=== PATIENT | male | born 1970 | race Caucasian/White ===

== ENCOUNTER 2022-08-16 14:34 | Inpatient (IN) | payer SELFPAY ==
[2022-08-16] MEDS ORDERED: Ondansetron 4 MG/2 ML SDV IVPUSH ONE (15:01)
[2022-08-16] MEDS ORDERED: HYDROmorphone 0.5 MG/0.5 ML Syringe IVPUSH ONE ×3 (15:01→20:20)
[2022-08-16] MEDS ORDERED: Sodium Chloride 0.9% 1,000 ML IV STA (15:01)
[2022-08-16] MEDS ORDERED: Sodium Chloride 0.9% 500 ML IV STA (16:16)
[2022-08-16] MEDS ORDERED: Sodium Chloride 0.9% 10 ML Syringe FLUSH ONE (16:25)
[2022-08-16] MEDS ORDERED: Iopamidol 612 MG/ML 100 ML Bottle IVPUSH ONE (16:25)
[2022-08-16] MEDS ORDERED: Heparin Sodium 5,000 Units/ML Vial IVPUSH ONE (17:08)
[2022-08-16] MEDS ORDERED: Heparin Sodium/D5W 25,000 UNITS/500 ML BAG IV SCH (17:15)
[2022-08-16] MEDS: NS with KCl 40mEq 1,000 ML IV SCH (17:37)
[2022-08-16 17:59] LABS: CORONAVIRUS COVID-19 NAA NEGATIVE (NEGATIVE)
[2022-08-16] MEDS ORDERED: cefTRIAXone 2 GM in Sodium Chloride 0.9% 100 ML IV ONE (20:16)
[2022-08-16] MEDS: Sodium Chloride 0.9% 10 ML Syringe FLUSH PRN (20:54)
[2022-08-16] MEDS: HYDROmorphone 0.5 MG/0.5 ML Syringe IVPUSH PRN (23:19)
[2022-08-16] MEDS: traZODone 50 MG Tab PO PRN (23:19)
[2022-08-17] MEDS ORDERED: Heparin Sodium 5,000 Units/ML Vial IVPUSH STA (01:11)
[2022-08-17] MEDS: HYDROmorphone 0.5 MG/0.5 ML Syringe IVPUSH PRN ×8 (01:19→21:46)
[2022-08-17] MEDS: NS with KCl 40mEq 1,000 ML IV SCH ×2 (01:20→09:34)
[2022-08-17] MEDS ORDERED: Heparin Sodium 5,000 Units/ML Vial IVPUSH ONE ×2 (09:15→17:58)
[2022-08-17] MEDS: Sodium Chloride 0.9% 10 ML Syringe FLUSH PRN (09:40)
[2022-08-17] MEDS: Pantoprazole 40 MG Tab.CR PO SCH (10:32)
[2022-08-17] MEDS: Naphazoline 0.12%/Zinc Sulfate/Glycerin Ophth Soln 15 ML Bottle EYEBOTH PRN (10:32)
[2022-08-17] MEDS ORDERED: Lactated Ringers 1,000 ML IV SCH (13:45)
[2022-08-17] MEDS ORDERED: Psyllium Husk Powder Sugar Free 5.85 GM Packet PO PRN (13:48)
[2022-08-17] MEDS ORDERED: hydrALAZINE 20 MG/ML SDV IVPUSH PRN (13:48)
[2022-08-17] MEDS ORDERED: Docusate Sodium 100 MG Cap PO PRN (13:48)
[2022-08-17] MEDS ORDERED: Ondansetron 4 MG/2 ML SDV IVPUSH PRN (13:48)
[2022-08-17] MEDS ORDERED: cefTRIAXone 1 GM in Sodium Chloride 0.9% 100 ML IV SCH (14:00)
[2022-08-17] MEDS: Heparin Sodium/D5W 25,000 UNITS/500 ML BAG IV SCH (14:14)
[2022-08-17] MEDS: Nicotine 14 MG/24 Hr Patch TRDERM SCH (15:02)
[2022-08-17] MEDS: Acetaminophen/oxyCODONE 325-5 MG Tab PO PRN (15:13)
[2022-08-17] MEDS ORDERED: cefTRIAXone 1 GM in Sodium Chloride 0.9% 100 ML IV ONE (16:00)
[2022-08-17] MEDS: Aluminum Hydroxide/Magnesium Hydroxide/Simethicone Susp 30 ML Cup PO PRN (21:47)
[2022-08-17] MEDS: traZODone 50 MG Tab PO PRN (23:40)
[2022-08-18] MEDS ORDERED: Heparin Sodium 5,000 Units/ML Vial IVPUSH ONE ×2 (00:07→07:43)
[2022-08-18] MEDS: Acetaminophen/oxyCODONE 325-5 MG Tab PO PRN ×3 (03:12→21:43)
[2022-08-18] MEDS: Heparin Sodium/D5W 25,000 UNITS/500 ML BAG IV SCH ×2 (04:53→15:39)
[2022-08-18] MEDS: Pantoprazole 40 MG Tab.CR PO SCH (05:00)
[2022-08-18] MEDS: Nicotine 14 MG/24 Hr Patch TRDERM SCH ×2 (08:04→09:41)
[2022-08-18] MEDS: cefTRIAXone 2 GM in Sodium Chloride 0.9% 100 ML IV SCH (08:04)
[2022-08-18] MEDS: HYDROmorphone 0.5 MG/0.5 ML Syringe IVPUSH PRN ×4 (09:21→19:40)
[2022-08-18] MEDS: Acetaminophen 325 MG Tab PO PRN (10:38)
[2022-08-18] MEDS: Aluminum Hydroxide/Magnesium Hydroxide/Simethicone Susp 30 ML Cup PO PRN ×2 (10:38→20:21)
[2022-08-18] MEDS: traZODone 50 MG Tab PO PRN (21:44)
[2022-08-18] MEDS ORDERED: Heparin Sodium 5,000 Units/ML Vial IVPUSH STA (22:59)
[2022-08-19] MEDS: HYDROmorphone 0.5 MG/0.5 ML Syringe IVPUSH PRN ×8 (00:22→20:55)
[2022-08-19] MEDS: Heparin Sodium/D5W 25,000 UNITS/500 ML BAG IV SCH ×3 (01:32→20:54)
[2022-08-19] MEDS: Acetaminophen/oxyCODONE 325-5 MG Tab PO PRN ×3 (06:01→23:36)
[2022-08-19] MEDS: Pantoprazole 40 MG Tab.CR PO SCH (06:01)
[2022-08-19] MEDS ORDERED: Heparin Sodium 5,000 Units/ML Vial IVPUSH STA (06:32)
[2022-08-19] MEDS: Nicotine 14 MG/24 Hr Patch TRDERM SCH (08:30)
[2022-08-19] MEDS: cefTRIAXone 2 GM in Sodium Chloride 0.9% 100 ML IV SCH (09:05)
[2022-08-19] MEDS: Sodium Bicarbonate 650 MG Tab PO SCH ×2 (10:24→20:54)
[2022-08-19] MEDS: Potassium Chloride 20 MEQ Tab.ER PO SCH ×2 (10:25→20:54)
[2022-08-19] MEDS: Calcium Carbonate 500 MG Tab.Chew PO PRN ×2 (11:46→18:41)
[2022-08-19] MEDS: Acetaminophen 325 MG Tab PO PRN (21:03)
[2022-08-20] MEDS: Heparin Sodium/D5W 25,000 UNITS/500 ML BAG IV SCH (04:46)
[2022-08-20] MEDS: Pantoprazole 40 MG Tab.CR PO SCH (05:37)
[2022-08-20] MEDS: Calcium Carbonate 500 MG Tab.Chew PO PRN ×3 (08:21→17:43)
[2022-08-20] MEDS: Acetaminophen/oxyCODONE 325-5 MG Tab PO PRN (08:21)
[2022-08-20] MEDS: Potassium Chloride 20 MEQ Tab.ER PO SCH ×2 (08:22→20:51)
[2022-08-20] MEDS: Sodium Bicarbonate 650 MG Tab PO SCH ×2 (08:22→20:52)
[2022-08-20] MEDS: cefTRIAXone 2 GM in Sodium Chloride 0.9% 100 ML IV SCH (10:10)
[2022-08-20] MEDS: Enoxaparin 80 MG/0.8 ML Syringe SUBCUT SCH ×2 (10:16→21:00)
[2022-08-20] MEDS: HYDROmorphone 0.5 MG/0.5 ML Syringe IVPUSH PRN ×3 (15:08→20:55)
[2022-08-20] MEDS: Acetaminophen 325 MG Tab PO PRN (15:51)
[2022-08-20] MEDS: traZODone 50 MG Tab PO PRN (20:51)
[2022-08-21] MEDS: HYDROmorphone 0.5 MG/0.5 ML Syringe IVPUSH PRN ×5 (00:52→20:22)
[2022-08-21] MEDS: Acetaminophen/oxyCODONE 325-5 MG Tab PO PRN ×3 (01:55→14:59)
[2022-08-21] MEDS: Pantoprazole 40 MG Tab.CR PO SCH (06:25)
[2022-08-21] MEDS: Acetaminophen 325 MG Tab PO PRN ×2 (06:31→20:13)
[2022-08-21] MEDS: Sodium Bicarbonate 650 MG Tab PO SCH ×2 (08:27→20:12)
[2022-08-21] MEDS: Potassium Chloride 20 MEQ Tab.ER PO SCH ×2 (08:27→20:13)
[2022-08-21] MEDS: cefTRIAXone 2 GM in Sodium Chloride 0.9% 100 ML IV SCH (08:29)
[2022-08-21] MEDS: Enoxaparin 80 MG/0.8 ML Syringe SUBCUT SCH ×2 (09:56→22:13)
[2022-08-21] MEDS: Calcium Carbonate 500 MG Tab.Chew PO PRN (11:54)
[2022-08-21] MEDS: Aluminum Hydroxide/Magnesium Hydroxide/Simethicone Susp 30 ML Cup PO PRN (18:30)
[2022-08-21] MEDS: traZODone 50 MG Tab PO PRN (20:12)
[2022-08-22] MEDS: HYDROmorphone 0.5 MG/0.5 ML Syringe IVPUSH PRN ×4 (00:14→20:34)
[2022-08-22] MEDS: Acetaminophen/oxyCODONE 325-5 MG Tab PO PRN ×4 (04:02→23:13)
[2022-08-22] MEDS: Pantoprazole 40 MG Tab.CR PO SCH (06:19)
[2022-08-22] MEDS ORDERED: Sodium Chloride 0.9% 10 ML Syringe FLUSH PRN (09:11)
[2022-08-22] MEDS ORDERED: Iopamidol 755 Mg/ML 100 ML Bottle IVPUSH ONE (09:11)
[2022-08-22] MEDS ORDERED: Sodium Chloride 0.9% 100 ML IV SCH (09:15)
[2022-08-22] MEDS ORDERED: Iopamidol 755 MG/ML 50 ML Bottle IVPUSH ONE ×3 (09:50)
[2022-08-22] MEDS ORDERED: Piperacillin/Tazobactam 4.5 GM in Sodium Chloride 0.9% 100 ML IV ONE (10:00)
[2022-08-22] MEDS: Enoxaparin 80 MG/0.8 ML Syringe SUBCUT SCH ×2 (10:30→22:15)
[2022-08-22] MEDS: Potassium Chloride 20 MEQ Tab.ER PO SCH (10:30)
[2022-08-22] MEDS: cefTRIAXone 2 GM in Sodium Chloride 0.9% 100 ML IV SCH (10:30)
[2022-08-22] MEDS: Sodium Bicarbonate 650 MG Tab PO SCH (10:31)
[2022-08-22] MEDS: Sodium Chloride 1 GM Tab PO SCH ×2 (10:54→20:34)
[2022-08-22] MEDS: Aluminum Hydroxide/Magnesium Hydroxide/Simethicone Susp 30 ML Cup PO PRN (10:54)
[2022-08-22] MEDS: Piperacillin/Tazobactam 4.5 GM in Sodium Chloride 0.9% 100 ML IV SCH (17:47)
[2022-08-22] MEDS: Calcium Carbonate 500 MG Tab.Chew PO PRN (17:49)
[2022-08-22] MEDS: traZODone 50 MG Tab PO PRN (20:34)
[2022-08-23] MEDS: HYDROmorphone 0.5 MG/0.5 ML Syringe IVPUSH PRN ×7 (02:36→23:32)
[2022-08-23] MEDS: Piperacillin/Tazobactam 4.5 GM in Sodium Chloride 0.9% 100 ML IV SCH ×3 (02:43→17:07)
[2022-08-23] MEDS: Pantoprazole 40 MG Tab.CR PO SCH (05:16)
[2022-08-23] MEDS: Acetaminophen/oxyCODONE 325-5 MG Tab PO PRN ×2 (06:22→21:54)
[2022-08-23] MEDS: Sodium Chloride 1 GM Tab PO SCH ×2 (09:13→20:17)
[2022-08-23] MEDS: Enoxaparin 80 MG/0.8 ML Syringe SUBCUT SCH ×2 (09:14→21:55)
[2022-08-23] MEDS: cefTRIAXone 2 GM in Sodium Chloride 0.9% 100 ML IV SCH (09:22)
[2022-08-23] MEDS: Calcium Carbonate 500 MG Tab.Chew PO PRN (09:27)
[2022-08-23 13:48] LABS: C. TRACHOMATIS BY PCR NOT DETECTED; N. GONORRHOEAE BY PCR NOT DETECTED
[2022-08-23] MEDS: traZODone 50 MG Tab PO PRN (23:33)
[2022-08-24] MEDS: HYDROmorphone 0.5 MG/0.5 ML Syringe IVPUSH PRN ×7 (02:52→23:42)
[2022-08-24] MEDS: Piperacillin/Tazobactam 4.5 GM in Sodium Chloride 0.9% 100 ML IV SCH ×3 (02:52→17:39)
[2022-08-24] MEDS: Acetaminophen 325 MG Tab PO PRN ×2 (03:10→19:58)
[2022-08-24] MEDS: Acetaminophen/oxyCODONE 325-5 MG Tab PO PRN ×2 (05:04→22:01)
[2022-08-24] MEDS: Pantoprazole 40 MG Tab.CR PO SCH (05:05)
[2022-08-24] MEDS: cefTRIAXone 2 GM in Sodium Chloride 0.9% 100 ML IV SCH (08:33)
[2022-08-24] MEDS: Calcium Carbonate 500 MG Tab.Chew PO PRN ×3 (08:34→17:38)
[2022-08-24] MEDS: Sodium Chloride 1 GM Tab PO SCH ×3 (08:34→21:48)
[2022-08-24] MEDS: Enoxaparin 80 MG/0.8 ML Syringe SUBCUT SCH ×2 (10:12→22:01)
[2022-08-24] MEDS: traZODone 50 MG Tab PO PRN (19:58)
[2022-08-25] MEDS: HYDROmorphone 0.5 MG/0.5 ML Syringe IVPUSH PRN ×5 (02:14→23:57)
[2022-08-25] MEDS: Piperacillin/Tazobactam 4.5 GM in Sodium Chloride 0.9% 100 ML IV SCH ×2 (02:14→10:27)
[2022-08-25] MEDS: Naphazoline 0.12%/Zinc Sulfate/Glycerin Ophth Soln 15 ML Bottle EYEBOTH PRN (03:10)
[2022-08-25] MEDS: Pantoprazole 40 MG Tab.CR PO SCH (05:06)
[2022-08-25] MEDS: cefTRIAXone 2 GM in Sodium Chloride 0.9% 100 ML IV SCH (08:20)
[2022-08-25] MEDS: Acetaminophen/oxyCODONE 325-5 MG Tab PO PRN ×2 (08:23→20:07)
[2022-08-25] MEDS: Sodium Chloride 1 GM Tab PO SCH (08:23)
[2022-08-25] MEDS: Calcium Carbonate 500 MG Tab.Chew PO PRN ×2 (08:24→16:57)
[2022-08-25] MEDS: Enoxaparin 80 MG/0.8 ML Syringe SUBCUT SCH ×2 (10:27→21:01)
[2022-08-25] MEDS: Gabapentin 100 MG Cap PO SCH (14:30)
[2022-08-25] MEDS: traZODone 50 MG Tab PO PRN (20:09)
[2022-08-26] MEDS: Acetaminophen/oxyCODONE 325-5 MG Tab PO PRN ×2 (02:34→09:15)
[2022-08-26] MEDS: HYDROmorphone 0.5 MG/0.5 ML Syringe IVPUSH PRN ×4 (06:08→22:48)
[2022-08-26] MEDS: Pantoprazole 40 MG Tab.CR PO SCH (06:09)
[2022-08-26] MEDS: Enoxaparin 80 MG/0.8 ML Syringe SUBCUT SCH ×2 (09:14→21:30)
[2022-08-26] MEDS: Acetaminophen 325 MG Tab PO PRN ×3 (09:15→19:03)
[2022-08-26] MEDS: Gabapentin 100 MG Cap PO SCH (09:16)
[2022-08-26] MEDS: cefTRIAXone 2 GM in Sodium Chloride 0.9% 100 ML IV SCH (09:16)
[2022-08-26] MEDS: oxyCODONE 5 MG Tab PO PRN ×2 (14:17→20:20)
[2022-08-26] MEDS ORDERED: Warfarin 5 MG Tab PO SCH (18:00)
[2022-08-26] MEDS: traZODone 50 MG Tab PO PRN (22:48)
[2022-08-27] MEDS: Acetaminophen 325 MG Tab PO PRN ×2 (00:40→10:32)
[2022-08-27] MEDS: oxyCODONE 5 MG Tab PO PRN ×3 (02:55→18:07)
[2022-08-27] MEDS: HYDROmorphone 0.5 MG/0.5 ML Syringe IVPUSH PRN ×3 (05:00→21:22)
[2022-08-27] MEDS: Pantoprazole 40 MG Tab.CR PO SCH (05:00)
[2022-08-27] MEDS: Gabapentin 100 MG Cap PO SCH ×3 (08:57→21:21)
[2022-08-27] MEDS: Enoxaparin 80 MG/0.8 ML Syringe SUBCUT SCH ×3 (08:58→21:21)
[2022-08-27] MEDS ORDERED: methylPREDNISolone Sod Succ 125 MG in Sodium Chloride 0.9% 250 ML IV ONE (11:50)
[2022-08-27] MEDS ORDERED: methylPREDNISolone Sodium Succinate 125 MG/2 ML SDV IV ONE (12:15)
[2022-08-27] MEDS ORDERED: oxyCODONE 5 MG Tab PO ONE (12:17)
[2022-08-27] MEDS ORDERED: Warfarin 5 MG Tab PO SCH (18:00)
[2022-08-27] MEDS: traZODone 50 MG Tab PO PRN (22:51)
[2022-08-28] MEDS: oxyCODONE 5 MG Tab PO PRN ×3 (01:43→20:52)
[2022-08-28] MEDS: Acetaminophen 325 MG Tab PO PRN ×2 (03:34→19:47)
[2022-08-28] MEDS: Pantoprazole 40 MG Tab.CR PO SCH (05:55)
[2022-08-28] MEDS ORDERED: Piperacillin/Tazobactam 4.5 GM in Sodium Chloride 0.9% 100 ML IV ONE (06:15)
[2022-08-28] MEDS ORDERED: Sodium Chloride 0.9% 10 ML Syringe FLUSH PRN (08:38)
[2022-08-28] MEDS ORDERED: Iopamidol 755 MG/ML 50 ML Bottle IVPUSH ONE ×2 (08:38)
[2022-08-28] MEDS ORDERED: Sodium Chloride 0.9% 100 ML IV SCH (08:45)
[2022-08-28] MEDS: Enoxaparin 80 MG/0.8 ML Syringe SUBCUT SCH ×2 (09:40→21:02)
[2022-08-28] MEDS: Gabapentin 100 MG Cap PO SCH ×3 (09:40→20:53)
[2022-08-28] MEDS: Piperacillin/Tazobactam 4.5 GM in Sodium Chloride 0.9% 100 ML IV SCH ×2 (14:42→21:03)
[2022-08-28] MEDS: HYDROmorphone 0.5 MG/0.5 ML Syringe IVPUSH PRN (17:47)
[2022-08-28] MEDS ORDERED: Warfarin 5 MG Tab PO SCH (18:00)
[2022-08-28] MEDS: Naphazoline 0.12%/Zinc Sulfate/Glycerin Ophth Soln 15 ML Bottle EYEBOTH PRN (18:01)
[2022-08-28] MEDS: traZODone 50 MG Tab PO PRN (20:53)
[2022-08-29] MEDS: HYDROmorphone 0.5 MG/0.5 ML Syringe IVPUSH PRN ×3 (01:39→17:52)
[2022-08-29] MEDS: oxyCODONE 5 MG Tab PO PRN ×4 (04:25→20:30)
[2022-08-29] MEDS: Pantoprazole 40 MG Tab.CR PO SCH (05:00)
[2022-08-29] MEDS: Naphazoline 0.12%/Zinc Sulfate/Glycerin Ophth Soln 15 ML Bottle EYEBOTH PRN ×2 (05:00→16:01)
[2022-08-29] MEDS: Piperacillin/Tazobactam 4.5 GM in Sodium Chloride 0.9% 100 ML IV SCH ×3 (05:00→22:16)
[2022-08-29] MEDS: Gabapentin 100 MG Cap PO SCH ×3 (09:40→22:14)
[2022-08-29] MEDS: Enoxaparin 80 MG/0.8 ML Syringe SUBCUT SCH ×2 (09:40→22:13)
[2022-08-29] MEDS: Acetaminophen 325 MG Tab PO PRN (12:01)
[2022-08-29] MEDS ORDERED: Warfarin 2.5 MG Tab PO SCH (18:00)
[2022-08-29] MEDS: traZODone 50 MG Tab PO PRN (20:32)
[2022-08-30] MEDS: Acetaminophen 325 MG Tab PO PRN ×3 (02:22→23:10)
[2022-08-30] MEDS: HYDROmorphone 0.5 MG/0.5 ML Syringe IVPUSH PRN ×3 (02:22→18:28)
[2022-08-30] MEDS: oxyCODONE 5 MG Tab PO PRN ×4 (02:22→20:18)
[2022-08-30] MEDS: Piperacillin/Tazobactam 4.5 GM in Sodium Chloride 0.9% 100 ML IV SCH ×3 (06:27→22:44)
[2022-08-30] MEDS: Pantoprazole 40 MG Tab.CR PO SCH (06:27)
[2022-08-30] MEDS: Gabapentin 100 MG Cap PO SCH ×3 (10:12→20:18)
[2022-08-30] MEDS: Naphazoline 0.12%/Zinc Sulfate/Glycerin Ophth Soln 15 ML Bottle EYEBOTH PRN (10:15)
[2022-08-30] MEDS: Enoxaparin 80 MG/0.8 ML Syringe SUBCUT SCH ×2 (10:45→23:00)
[2022-08-30] MEDS ORDERED: Warfarin 4 MG Tab PO SCH (18:00)
[2022-08-30] MEDS: traZODone 50 MG Tab PO PRN (23:10)
[2022-08-31] MEDS: oxyCODONE 5 MG Tab PO PRN ×5 (01:00→20:08)
[2022-08-31] MEDS: HYDROmorphone 0.5 MG/0.5 ML Syringe IVPUSH PRN ×3 (03:01→23:05)
[2022-08-31] MEDS: Pantoprazole 40 MG Tab.CR PO SCH (06:14)
[2022-08-31] MEDS: Piperacillin/Tazobactam 4.5 GM in Sodium Chloride 0.9% 100 ML IV SCH ×3 (06:14→22:48)
[2022-08-31] MEDS: Acetaminophen 325 MG Tab PO PRN ×2 (08:22→17:55)
[2022-08-31] MEDS: Gabapentin 100 MG Cap PO SCH ×3 (08:23→20:08)
[2022-08-31] MEDS: Naphazoline 0.12%/Zinc Sulfate/Glycerin Ophth Soln 15 ML Bottle EYEBOTH PRN (08:32)
[2022-08-31] MEDS ORDERED: HYDROmorphone 0.5 MG/0.5 ML Syringe IVPUSH ONE (09:15)
[2022-08-31] MEDS: Enoxaparin 80 MG/0.8 ML Syringe SUBCUT SCH ×2 (09:29→22:49)
[2022-08-31] MEDS ORDERED: Warfarin 4 MG Tab PO SCH (18:00)
[2022-09-01] MEDS: oxyCODONE 5 MG Tab PO PRN ×4 (04:17→22:39)
[2022-09-01] MEDS: Piperacillin/Tazobactam 4.5 GM in Sodium Chloride 0.9% 100 ML IV SCH (06:45)
[2022-09-01] MEDS: Pantoprazole 40 MG Tab.CR PO SCH (06:45)
[2022-09-01] MEDS: Gabapentin 100 MG Cap PO SCH ×3 (08:21→21:22)
[2022-09-01] MEDS: HYDROmorphone 0.5 MG/0.5 ML Syringe IVPUSH PRN ×2 (08:26→21:22)
[2022-09-01] MEDS ORDERED: predniSONE 20 MG Tab PO SCH (12:00)
[2022-09-01] MEDS ORDERED: Warfarin 4 MG Tab PO SCH (18:00)
[2022-09-02] MEDS: oxyCODONE 5 MG Tab PO PRN ×4 (03:39→19:10)
[2022-09-02] MEDS: HYDROmorphone 0.5 MG/0.5 ML Syringe IVPUSH PRN ×2 (06:09→16:02)
[2022-09-02] MEDS: Pantoprazole 40 MG Tab.CR PO SCH (06:09)
[2022-09-02] MEDS: predniSONE 20 MG Tab PO SCH (08:07)
[2022-09-02] MEDS: Gabapentin 100 MG Cap PO SCH ×3 (08:07→20:49)
[2022-09-02] MEDS: Acetaminophen 325 MG Tab PO PRN (12:40)
[2022-09-02] MEDS ORDERED: Warfarin 4 MG Tab PO SCH (18:00)
[2022-09-02] MEDS: traZODone 50 MG Tab PO PRN (22:09)
[2022-09-03] MEDS: HYDROmorphone 0.5 MG/0.5 ML Syringe IVPUSH PRN ×3 (00:03→18:58)
[2022-09-03] MEDS: oxyCODONE 5 MG Tab PO PRN ×4 (03:11→21:04)
[2022-09-03] MEDS: Pantoprazole 40 MG Tab.CR PO SCH (05:16)
[2022-09-03] MEDS: Acetaminophen 325 MG Tab PO PRN ×2 (05:34→20:04)
[2022-09-03] MEDS: Gabapentin 100 MG Cap PO SCH ×3 (08:10→20:04)
[2022-09-03] MEDS: predniSONE 20 MG Tab PO SCH (08:10)
[2022-09-03 17:47] LABS: QUANTIFERON TB1 AG VALUE 0.08 IU/mL; QUANTIFERON TB2 AG VALUE 0.09 IU/mL
[2022-09-03] MEDS ORDERED: Warfarin Sliding Scale PO SCH (18:00)
[2022-09-03] MEDS: traZODone 50 MG Tab PO PRN (21:05)
[2022-09-04] MEDS: oxyCODONE 5 MG Tab PO PRN ×3 (04:20→12:41)
[2022-09-04] MEDS: Pantoprazole 40 MG Tab.CR PO SCH (05:47)
[2022-09-04] MEDS: Gabapentin 100 MG Cap PO SCH (08:18)
[2022-09-04] MEDS: predniSONE 20 MG Tab PO SCH (08:18)
[2022-09-04] MEDS ORDERED: Warfarin 3 MG Tab PO SCH (18:00)
== END 2022-09-04 14:33 | disposition home or self-care (01) | DRG 871 ==
LOC: JD.ED 14:34 → JD.MS 20:34
PROVIDERS: ADMIT Internal Medicine; ATTEND Internal Medicine
DX: A40.8 Other streptococcal sepsis (principal); J96.01 Acute respiratory failure with hypoxia; I82.421 Acute embolism and thrombosis of right iliac vein; N17.9 Acute kidney failure, unspecified; N39.0 Urinary tract infection, site not specified; M00.9 Pyogenic arthritis, unspecified; D89.89 Other specified disorders involving the immune mechanism, not elsewhere classified; R65.20 Severe sepsis without septic shock; Z20.822 Contact with and (suspected) exposure to COVID-19; D75.839 Thrombocytosis, unspecified; I77.6 Arteritis, unspecified; E87.6 Hypokalemia; E86.0 Dehydration; I10 Essential (primary) hypertension; F32.A Depression, unspecified; Z90.89 Acquired absence of other organs; Z98.890 Other specified postprocedural states; Z87.891 Personal history of nicotine dependence; Z23 Encounter for immunization
CPT/HCPCS: 0241U; 36415; 71046; 71046-26; 73030-26-RT; 73030-RT; 73600-26-LT; 73600-LT; 73701-26-LT; 73701-LT; 74177; 74177-26; 75635; 75635-26; 76705; 76705-26; 80048; 80053; 81001; 81003; 81270; 82550; 82728; 83516; 83605; 83690; 85025; 85027; 85610; 85652; 85730; 86140; 86480; 87040; 87077; 87086; 87154; 87186; 87491; 87591; 93005; 93010; 93306; 93925; 93925-26; 93970; 93970-26; 93971-26-RT; 93971-RT; 94760; 94762; 96361; 96365; 96366; 96368; 96375; 96376; 97110-GP; 97116-GP; 97140-GP; 97162-GP; 97166-GO; 97530-GO; 97530-GP; 97535-GO; 99284; 99285-25; A9270-GY; G0433; J0696; J1170; J1644; J1650; J2405; J2543; J2930; J3480; J3490; J7030; J7120; J7512; Q9967